=== PATIENT | female | born 1990 | race Caucasian/White ===

== ENCOUNTER 2017-02-04 21:48 | Emergency (ER) | payer OTHER ==
[2016-05-12 07:02] VITALS: BMI 35.7
--- NOTE | 2017-02-04 22:37 | OBHP ---
Datetime: 02/04/2017 22:27 IP Adm Impression: No Active Labor; Intact Membranes IP Chief Complaint Other: P6 complains of LOF , 1 episode yesterday and another episode today. No ut erine contractions, no vaginal bleeding. States good movement. IP Admit Plan: Discharge home Admit Comment, IP Provider: No PPROM. Discharge home. Pelvic Type - PN: Adequate Extremities - PN: Normal Abdomen - PN: Normal Back - PN: Normal Breast - PN: Not Done Lungs - PN: Normal Heart - PN: Normal Thyroid - PN: Not Done Neurologic - PN: Not Done HEENT - PN: Not Done General - PN: Normal IP Fetus A Comments: Bedside sonogram: Vertex, active fetus, Adequate amniotic fluid FHR - Baseline A Provider: 150 Membranes, Provider: Intact Comments, ACOG Physical Exam: SSE: No pooling of fluid on Valsalva. Negative Amniotest. Gestation - Est Wks by US: 25.0 EGA AdmitDate IP: 25.5 IP Chief Complaint: Suspected ruptured membranes NICHD Variability Prov Fetus A: Moderate 6-25bpm FHR Category Provider Fetus A: Category I NICHD Decel Fetus A IP Provider: None Dilatation, Provider: 0 Effacement, Provider: 0 Genitourinary Exam: Normal DTRs - PN: Normal
== END 2017-02-04 22:27 | disposition home or self-care (01) ==
LOC: C.EROB 21:48
DX: O47.02 False labor before 37 completed weeks of gestation, second trimester (principal); Z3A.25 25 weeks gestation of pregnancy

== ENCOUNTER 2017-03-27 02:29 | Emergency (ER) | payer OTHER ==
[2017-03-27 02:55] VITALS: BMI 33.2
[2017-03-27 03:14] LABS: RBC URINE 4 /hpf (0-3); URINE BILIRUBIN NEGATIVE (NEGATIVE); URINE BLOOD NEGATIVE (NEGATIVE); URINE COLOR Yellow (YELLOW); URINE GLUCOSE (UA) NORMAL (Normal); URINE KETONE NEGATIVE (NEGATIVE); URINE PROTEIN NEGATIVE (NEGATIVE); URINE UROBILINOGEN NORMAL mg/dL (0.2-1.0); WBC URINE 3 /hpf (0-5)
[2017-03-27 03:17] LABS: URINE LEUKOCYTE ESTERASE TRACE Leu/uL (Negative)
--- NOTE | 2017-03-27 03:36 | OBHP ---
Datetime: 03/27/2017 03:32 IP Adm Impression: , intrauterine IP Chief Complaint Other: cramping IP Admit Plan: Discharge home Admit Comment, IP Provider: t 3weeks came with c/o bck pain started at 9 pm and increase freque ncy of urinatiom. no pain now, no vb, lf,=fm. obhx 3 x c/s pmh den med pnv all nkda psh c/s soch de ve closed ua 3+le a/p at 3weks uti/r/o pretrm ctxs macrobid po hyration pl given f./u in clinic on Pelvic Type - PN: Adequate Extremities - PN: Normal Abdomen - PN: Normal Back - PN: Normal Breast - PN: Normal Lungs - PN: Normal Heart - PN: Normal Thyroid - PN: Normal Neurologic - PN: Normal HEENT - PN: Normal General - PN: Normal FHR - Baseline A Provider: 130 Contraction Comments Provider: none EGA AdmitDate IP: 33.0 Vital Signs Provider: Reviewed; Within Normal Limits IP Chief Complaint: Uterine contractions NICHD Variability Prov Fetus A: Moderate 6-25bpm NICHD Accel Fetus A IP Provider: [id number] FHR Category Provider Fetus A: Category I Dilatation, Provider: 0 Effacement, Provider: 0 Station, Provider: -3 Genitourinary Exam: Normal DTRs - PN: Normal
--- NOTE | 2017-03-27 03:38 | OBDCSUM ---
Datetime: 02/04/2017 22:27 Discharge Comment, Provider: cayetano gage hyration pl given f./u in clinic on Discharge Diagnosis Prov Other: 33weeks nst uti
== END 2017-03-27 03:38 | disposition home or self-care (01) ==
LOC: C.EROB 02:29
DX: O23.40 Unspecified infection of urinary tract in pregnancy, unspecified trimester (principal); Z3A.33 33 weeks gestation of pregnancy

== ENCOUNTER 2017-05-23 00:06 | Emergency (ER) | payer OTHER ==
[2017-05-23 00:06] VITALS: BMI 33.2
[2017-05-23] MEDS ORDERED: Sodium Chloride 0.9% 1,000 ML IV ONE (00:44)
--- NOTE | 2017-05-23 00:44 | C.PDOC ---
History Of Present Illness 27 year old female who presents to the ER with a complaint of constant bilateral upper quadrant radiating to the epigastric region since this evening. Patient is SP on 05/19 without any complications; she states she has been doing well until now. Patient reports her and delivery was uneventful. Patient reports she has similar episodes of the same pain that is usually associated with eating fatty foods, however, denies eating these foods prior to symptom onset. Denies fever, nausea, or vomiting. Patient has a PSHx of cholecystectomy. B/L UQ AND EPIG PAIN SINCE THIS EVENING. S/P CSECT 05/19 WO COMPLICATION. PS HAS BEEN DOING WELL UNTIL NOW. UNEVENTFUL AND DELIVERY. PAIN SIM TO PRIOR EPISODES USUALLY ASSOC W EATING FATTY FOODS HOWEVER DENIES EATING THESE FOODS PRIOR TO SX ONSET. EPIG RADIATION B/L UQ CONSTANT. NO FEVER, NV. PSH ROBERT, CSECT EXAM MILD DIST NONTOXIC HEENT ANICTERIC ABD +EPIG TEND MOD +LUQ TEND MOD SOFT NO R/G SKIN HEALING CSECT SCAR LOWER ABD; REMAINDER NEG Time Seen by Provider: 05/23/17 00:35 Chief Complaint (Nursing): Abdominal Pain History Per: Patient History/Exam Limitations: no limitations Onset/Duration Of Symptoms: Hrs Current Symptoms Are (Timing): Still Present Location Of Pain/Discomfort: RUQ, Epigastric, LUQ Radiation Of Pain To:: None Quality Of Discomfort: Unable To Describe Associated Symptoms: denies: Fever, Nausea, Vomiting Exacerbating Factors: None Alleviating Factors: None Recent travel outside of the [place]: No Abnormal Vaginal Bleeding: No Past Medical History Reviewed: Historical Data, Nursing Documentation, Vital Signs Vital Signs: Last Vital Signs Temp 98.3 F 05/23/17 02:45 Pulse 54 L 05/23/17 02:45 Resp 16 05/23/17 02:45 BP 150/87 05/23/17 02:45 Pulse Ox 100 05/23/17 03:55 - Medical History PMH: No Chronic Diseases Surgical History: Cholecystectomy, - [facility] Procedures ASPIRAT CURET-POST DELIV (10/01/13) D & C POST DELIVERY (02/18/14) EXTRACTION OF POC, LOW CERVICAL, OPEN APPROACH (08/05/15) Family History: States: Unknown Family Hx - Social History Hx Tobacco Use: No Hx Alcohol Use: Yes Hx Substance Use: No - Immunization History Hx Tetanus Toxoid Vaccination: No Hx Influenza Vaccination: No Hx Pneumococcal Vaccination: No Review Of Systems Except As Marked, All Systems Reviewed And Found Negative. Constitutional: Negative for: Fever Gastrointestinal: Positive for: Abdominal Pain. Negative for: Nausea, Vomiting Physical Exam - Physical Exam Appears: Non-toxic, Other (Mild distress. ) Skin: Warm, Dry, Other (Healing scar to lower abdomen) Head: Atraumatic, Normacephalic Eye(s): bilateral: Normal Inspection, PERRL, EOMI, Other (Anicteric) Ear(s): Bilateral: Normal Oral Mucosa: Moist Neck: Normal, Supple Chest: Symmetrical, No Tenderness Cardiovascular: Rhythm Regular, No Murmur Respiratory: Other (No respiratory distress, Speaking in complete sentences) Gastrointestinal/Abdominal: Soft, Tenderness (Moderate Epigastric. Moderate LUQ. ), No Guarding, No Rebound Neurological/Psych: Oriented x3, Normal Speech, Normal Cognition ED Course And Treatment - Laboratory Results Result Diagrams: 05/23/17 00:51 05/23/17 00:51 O2 Sat by Pulse Oximetry: 100 (Room air) Pulse Ox Interpretation: Normal Progress - Re-Evaluation Re-evaluation Note: 05/23/17 01:50 EXAM UNCH INITIAL. VSS. WILL CT 05/23/17 03:44 D/W DR COTA AWARE OF ER FINDINGS NO POST SURG INVOLVEMENT PENDING FU @ [facility] LATER TODAY. FEELS BETTER - Data Reviewed Data Reviewed: Lab, Diagnostic imaging, Old records - Continuity of Care Discussed pt. case with environmental consultant/specialty: Obstetrics/Gynecology Medical Decision Making Medical Decision Making: Plan: * CT abd/pel * Pepcid * Morphine * Protonix * IV fluids Disposition Counseled Patient/Family Regarding: Studies Performed, Diagnosis, Need For Followup, Rx Given - Disposition Referrals: [facility] [Outside] Disposition: HOME/ ROUTINE Disposition Time: 03:51 Condition: IMPROVED Additional Instructions: RETURN IF WORSENING SYMPTOMS. FOLLOW UP WITH YOUR PMD SCHEDULED. Forms: [facility] (Italian), General Discharge Instructions - Clinical Impression Clinical Impression: Constipation, Hepatitis, Upper abdominal pain - Scribe Statement The provider has reviewed the documentation as recorded by the Scribe Buster Burgess All medical record entries made by the Scribe were at my direction and personally dictated by me. I have reviewed the chart and agree that the record accurately reflects my personal performance of the history, physical exam, medical decision making, and the department course for this patient. I have also personally directed, reviewed, and agree with the discharge instructions and disposition.
[2017-05-23] MEDS ORDERED: Morphine 4 MG/ML VIAL ONE ×3 (00:53→04:10)
[2017-05-23 00:54] LABS: BASO # 0.1 K/uL (0.0-0.2); BASO % 0.7 % (0.0-2.0); EOS # 0.8 K/uL (0.0-0.7); EOS % 5.6 % (0.0-4.0); HEMOGLOBIN 9.4 g/dL (11.0-16.0); LYMPH % 20.7 % (20.0-40.0); MEAN CELL VOLUME 80.9 fL (81.0-99.0); MEAN CORPUSCULAR HEMOGLOBIN 26.9 pg (27.0-31.0); MEAN CORPUSCULAR HGB CONC 33.2 g/dL (33.0-37.0); MEAN PLATELET VOLUME 9.6 fL (7.2-11.7); MONO # 1.3 K/uL (0.0-0.8); MONO % 8.8 % (0.0-10.0); NEUT # 9.2 K/uL (1.8-7.0); NEUT % 64.2 % (50.0-75.0); NRBC % 0.2 % (0.0-2.0); RBC 3.49 Mil/uL (3.80-5.20); RED CELL DISTRIBUTION WIDTH 15.6 % (11.5-14.5); WHITE BLOOD COUNT 14.4 K/uL (4.8-10.8)
[2017-05-23 01:02] LABS: ALBUMIN 2.9 g/dL (3.5-5.0)
[2017-05-23 01:05] LABS: ALB/GLOB RATIO 0.9 (1.0-2.1); AST/SGOT 93 U/L (14-36); BILIRUBIN,DIRECT 0.8 mg/dL (0.0-0.4); GFR AFRICAN-AMERICAN > 60; GFR NON-AFRICAN AMERICAN > 60
[2017-05-23 01:06] LABS: ALT/SGPT 73 U/L (9-52); BLOOD UREA NITROGEN 18 mg/dL (7-17); LIPASE 68 U/L (23-300)
[2017-05-23 01:58] LABS: SQUAMOUS EPITHIAL 1 /hpf (0-5); URINE BILIRUBIN NEGATIVE (NEGATIVE); URINE BLOOD 2+ (NEGATIVE); URINE CLARITY Clear (Clear); URINE COLOR Yellow (YELLOW); URINE GLUCOSE (UA) NORMAL (Normal); URINE LEUKOCYTE ESTERASE NEG Leu/uL (Negative); URINE NITRATE NEGATIVE (NEGATIVE); URINE PROTEIN NEGATIVE (NEGATIVE); URINE UROBILINOGEN NORMAL mg/dL (0.2-1.0)
[2017-05-23] MEDS ORDERED: Iohexol 350mg/ml 100 ML ONE (02:25)
[2017-05-23] MEDS ORDERED: Oxycodone/Acetaminophen 5/325 mg Tab PO STA (03:55)
[2017-05-23 04:12] VITALS: RESP 18
[2017-05-23 04:40] VITALS: BP 153/94; PULSE 52; TEMP 98.3; O2SAT 95
--- NOTE | 2017-05-23 08:37 | CT ---
PROCEDURE: CT Abdomen and Pelvis with contrast HISTORY: RUQ PAIN, ABN LFT S/P CSECT COMPARISON: 05/12/2016. TECHNIQUE: CT scan of the abdomen and pelvis was performed after intravenous administration of contrast. Oral contrast was not administered. Coronal and sagittal reformatted images were obtained. Contrast dose: 100 mL Omnipaque 350 Radiation dose: Total exam DLP = 980.72 mGy-cm. This CT exam was performed using one or more of the following dose reduction techniques: Automated exposure control, adjustment of the mA and/or kV according to patient size, and/or use of iterative reconstruction technique. FINDINGS: LOWER THORAX: There is a moderate right and small left pleural effusion with compressive atelectasis in the lungs. LIVER: There is moderate hepatomegaly and diffuse low-attenuation in the liver. There is mild forefoot early edema. GALLBLADDER AND BILE DUCTS: The gallbladder is surgically absent. There is mild intrahepatic biliary ductal dilatation and mild dilatation of the common bile duct in keeping with post cholecystectomy status. PANCREAS: The pancreas is normal in size and there is homogeneous enhancement without focal mass or ductal dilatation. SPLEEN: There is mild splenomegaly. No focal lesion. ADRENALS: Both adrenal glands are normal in size without discrete nodule. KIDNEYS AND URETERS: Both kidneys are normal in size and there is homogeneous enhancement without hydronephrosis or focal mass. VASCULATURE: No aortic aneurysm. BOWEL: The small bowel loops are normal in caliber. There is moderate amount of stool scattered throughout the colon. APPENDIX: Normal appendix. PERITONEUM: There is a small amount of perihepatic fluid and free fluid in the pelvis. . No free air. LYMPH NODES: No enlarged lymph nodes. BLADDER: Partially decompressed. The small focus of air within the urinary bladder is likely related to recent catheterization. REPRODUCTIVE: The uterus is enlarged in keeping with status. BONES: No acute fracture. OTHER FINDINGS: There is diffuse anasarca. IMPRESSION: 1. Moderate right and small left pleural effusions, small amount of free fluid in the perihepatic space and pelvis. 2. Mild periportal edema, nonspecific. 3. Constipation. A preliminary report was provided by [employer].
== END 2017-05-23 04:45 | disposition home or self-care (01) ==
LOC: C.ER 00:06
DX: K59.00 Constipation, unspecified (principal); K75.9 Inflammatory liver disease, unspecified; R10.9 Unspecified abdominal pain
CPT/HCPCS: 74177; 80048; 80076; 81001; 83690; 85025; 96374; 96375; 96376; 99285; C9113; J2270; J7040; Q9967

== ENCOUNTER 2017-10-07 20:45 | Emergency (ER) | payer OTHER ==
[2017-10-07 20:45] VITALS: BMI 33.2
[2017-10-07 20:58] VITALS: BP 111/70; PULSE 88; RESP 20; TEMP 98.9; O2SAT 98
[2017-10-07 21:30] LABS: RBC URINE 2 /hpf (0-3); URINE BACTERIA RARE (<OCC); URINE BILIRUBIN NEGATIVE (NEGATIVE); URINE BLOOD 2+ (NEGATIVE); URINE COLOR Yellow (YELLOW); URINE GLUCOSE (UA) NORMAL (Normal); URINE KETONE NEGATIVE (NEGATIVE); URINE LEUKOCYTE ESTERASE 1+ Leu/uL (Negative); URINE PROTEIN NEGATIVE (NEGATIVE); URINE UROBILINOGEN NORMAL mg/dL (0.2-1.0); WBC URINE 28 /hpf (0-5)
--- NOTE | 2017-10-07 21:30 | C.PDOC ---
History Of Present Illness Drake Eastman is a 27 y/o female who presents to the ER complaining of abdominal pain, back pain, and dysuria, ongoing for 2 months. She describes having diffuse back pain as well as pain radiating from the left flank into the left abdomen. Denies fever, nausea, vomiting, and diarrhea. Pt reports taking Tylenol today at 2PM with no improvement. Was seen here on 05/23/[address] showing moderate right and small left pleural effusions, with small amount of free fluid in the perihepatic space/pelvis, as well as constipation and mild periportal edema. Pt also seen in [facility] ER on 07/31/[address] with no acute findings. Of note, patient gave 4 months ago via with no complications. She denies vaginal bleeding or discharge and states she is having normal menstruation. Time Seen by Provider: 10/07/17 20:56 Chief Complaint (Nursing): Female Genitourinary History Per: Patient History/Exam Limitations: no limitations Onset/Duration Of Symptoms: Days (x 2 months) Current Symptoms Are (Timing): Still Present Past Medical History Reviewed: Historical Data, Nursing Documentation, Vital Signs Vital Signs: Last Vital Signs Temp 98.9 F 10/07/17 20:53 Pulse 88 10/07/17 20:53 Resp 20 10/07/17 20:53 BP 111/70 10/07/17 20:53 Pulse Ox 98 10/07/17 21:40 - Medical History PMH: Gall Bladder Disease Surgical History: Cholecystectomy (2010), - [facility] Procedures ASPIRAT CURET-POST DELIV (10/01/13) D & C POST DELIVERY (02/18/14) EXTRACTION OF POC, LOW CERVICAL, OPEN APPROACH (08/05/15) Family History: States: Unknown Family Hx - Social History Hx Tobacco Use: No Hx Alcohol Use: Yes Hx Substance Use: No - Immunization History Hx Tetanus Toxoid Vaccination: No Hx Influenza Vaccination: No Hx Pneumococcal Vaccination: No Review Of Systems Constitutional: Negative for: Fever Gastrointestinal: Positive for: Abdominal Pain. Negative for: Nausea, Vomiting , Diarrhea Genitourinary: Positive for: Dysuria. Negative for: Vaginal Discharge, Vaginal Bleeding Musculoskeletal: Positive for: Back Pain Physical Exam - Physical Exam Appears: Non-toxic, No Acute Distress Skin: Normal Color, Warm, Dry Head: Atraumatic, Normacephalic Eye(s): bilateral: Normal Inspection, PERRL, EOMI Oral Mucosa: Moist Neck: Normal ROM, Supple Chest: Symmetrical, No Tenderness Cardiovascular: Rhythm Regular, No Murmur Respiratory: Normal Breath Sounds, No Rales, No Rhonchi, No Stridor Gastrointestinal/Abdominal: Normal Exam, Soft, Tenderness (mild left flank tenderness), No Distention Back: CVA Tenderness (Left), No Vertebral Tenderness, Paraspinal Tenderness ( bilateral lumbar area) Extremity: Normal ROM, No Pedal Edema, No Deformity Neurological/Psych: Oriented x3, Normal Speech, Normal Motor, Normal Sensation ED Course And Treatment - Laboratory Results Result Diagrams: 10/07/17 22:05 10/07/17 22:05 Urine POC: Negative O2 Sat by Pulse Oximetry: 98 (RA) Pulse Ox Interpretation: Normal Medical Decision Making Medical Decision Making: Initial Plan: POC urine Urinalysis Urine culture 1030 pm pt with dysuria and back pain x 2 months with left flank pain x few days ; pt also reports infrequent bowel movement, no fever or chills, no n/v/d. pt with +1le, 28 wbc, in urine, will treat for uti; pt to be given colace as well to help with regularity. pt has wbc of 14.9 with no left shift; advise pt to f/ u with hem onc and pmd. 1045 pm pt sts pain decreased, will d/c home shortly Disposition Counseled Patient/Family Regarding: Diagnosis, Need For Followup, Rx Given - Disposition Referrals: [facility] [Outside] [facility] [Outside] Alis Henderson MD [Staff Provider] - Disposition: HOME/ ROUTINE Disposition Time: 22:49 Condition: STABLE Additional Instructions: Please follow up with medical clinic and also with the drive in waiter/waitress. Your white blood cells are elevated and should have a further outpatient evaluation. mani antibiotics as prescribed. Tylenol or Motrin for pain. Drink increased fluids. Increase fiber in diet- recommend more fruits and vegetables. Use Colace as prescrbied. Prescriptions: Ciprofloxacin [Cipro] 500 mg PO BID #14 tab Docusate Sodium [Colace] 100 mg PO BID #60 capsule Forms: [facility] (Latvian), General Discharge Instructions - Clinical Impression Clinical Impression: UTI (urinary tract infection), Back pain - PA / VICE PRESIDENT OF H[employer]OURCES / Resident Statement MD/DO has reviewed & agrees with the documentation as recorded. - Scribe Statement The provider has reviewed the documentation as recorded by the Scribe (Airam Miller) All medical record entries made by the Scribe were at my direction and personally dictated by me. I have reviewed the chart and agree that the record accurately reflects my personal performance of the history, physical exam, medical decision making, and the department course for this patient. I have also personally directed, reviewed, and agree with the discharge instructions and disposition.
[2017-10-07 22:09] LABS: BASO # 0.1 K/uL (0.0-0.2); BASO % 0.9 % (0.0-2.0); EOS # 0.3 K/uL (0.0-0.7); EOS % 2.3 % (0.0-4.0); HEMATOCRIT 36.8 % (34.0-47.0); LYMPH # 5.4 K/uL (1.0-4.3); LYMPH % 36.1 % (20.0-40.0); MEAN CELL VOLUME 80.2 fL (81.0-99.0); MEAN CORPUSCULAR HEMOGLOBIN 27.7 pg (27.0-31.0); MEAN CORPUSCULAR HGB CONC 34.5 g/dL (33.0-37.0); MEAN PLATELET VOLUME 10.3 fL (7.2-11.7); MONO % 6.8 % (0.0-10.0); WHITE BLOOD COUNT 14.9 K/uL (4.8-10.8)
[2017-10-07 22:23] LABS: ALB/GLOB RATIO 1.1 (1.0-2.1); ALKALINE PHOSPHATASE 86 U/L (38-126); ALT/SGPT 48 U/L (9-52); AST/SGOT 20 U/L (14-36); BILIRUBIN,TOTAL 0.5 mg/dL (0.2-1.3); BLOOD UREA NITROGEN 11 mg/dL (7-17); CALCIUM 8.3 mg/dl (8.6-10.4); CARBON DIOXIDE 29 mmol/L (22-30); CHLORIDE 105 mmol/L (98-107); GFR AFRICAN-AMERICAN > 60; GLUCOSE,RANDOM 82 mg/dL (65-105); POTASSIUM 3.6 mmol/L (3.6-5.2); SODIUM 139 mmol/L (132-148)
== END 2017-10-07 23:13 | disposition home or self-care (01) ==
LOC: C.ER 20:45
DX: N39.0 Urinary tract infection, site not specified (principal); M54.9 Dorsalgia, unspecified
CPT/HCPCS: 80053; 81001; 85025; 87086; 96374; 99283; J1885

== ENCOUNTER 2017-10-24 12:25 | Emergency (ER) | payer OTHER ==
[2017-10-24 12:25] VITALS: BMI 33.2
[2017-10-24] MEDS ORDERED: Belladonna-Phenobarbital PO STA (13:28)
[2017-10-24] MEDS ORDERED: Sodium Chloride 0.9% 1,000 ML IV ONE ×2 (13:28→15:45)
[2017-10-24] MEDS ORDERED: Belladonna-Phenobarbital ONE (13:44)
[2017-10-24 13:47] LABS: BASO % 0.2 % (0.0-2.0); EOS # 0.1 K/uL (0.0-0.7); EOS % 0.3 % (0.0-4.0); HEMOGLOBIN 14.6 g/dL (11.0-16.0); LYMPH # 0.6 K/uL (1.0-4.3); LYMPH % 3.5 % (20.0-40.0); MEAN CELL VOLUME 81.2 fL (81.0-99.0); MEAN CORPUSCULAR HEMOGLOBIN 27.8 pg (27.0-31.0); MEAN CORPUSCULAR HGB CONC 34.2 g/dL (33.0-37.0); MEAN PLATELET VOLUME 10.4 fL (7.2-11.7); MONO # 0.6 K/uL (0.0-0.8); MONO % 3.8 % (0.0-10.0); NEUT # 14.7 K/uL (1.8-7.0); NEUT % 92.2 % (50.0-75.0); PLATELET COUNT 203 K/uL (130-400); RBC 5.26 Mil/uL (3.80-5.20); RED CELL DISTRIBUTION WIDTH 15.2 % (11.5-14.5); WHITE BLOOD COUNT 15.9 K/uL (4.8-10.8)
[2017-10-24 14:24] LABS: ALB/GLOB RATIO 1.2 (1.0-2.1); ALBUMIN 4.4 g/dL (3.5-5.0); ALT/SGPT 34 U/L (9-52); AST/SGOT 32 U/L (14-36); BLOOD UREA NITROGEN 14 mg/dL (7-17); CALCIUM 8.5 mg/dl (8.6-10.4); GFR AFRICAN-AMERICAN > 60; GFR NON-AFRICAN AMERICAN > 60; LIPASE 65 U/L (23-300)
[2017-10-24 14:39] LABS: ANISOCYTOSIS SLIGHT; LYMPHOCYTE 3 % (20-40); MONOCYTE 5 % (0-10); NEUTROPHIL 92 % (50-75); PLATELET ESTIMATE NORMAL (NORMAL); TOTAL CELLS COUNTED 100
[2017-10-24 15:44] LABS: HCG,QUALITATIVE URINE NEGATIVE (NEGATIVE); SQUAMOUS EPITHIAL 8 /hpf (0-5); URINE BILIRUBIN NEGATIVE (NEGATIVE); URINE BLOOD 3+ (NEGATIVE); URINE CLARITY Hazy (Clear); URINE COLOR Red (YELLOW); URINE GLUCOSE (UA) NORMAL (Normal); URINE LEUKOCYTE ESTERASE NEG Leu/uL (Negative); URINE NITRATE NEGATIVE (NEGATIVE); URINE PROTEIN 2+ mg/dL (NEGATIVE); URINE UROBILINOGEN NORMAL mg/dL (0.2-1.0)
[2017-10-24] MEDS ORDERED: Sodium Chloride 0.9% 1,000 ML ONE (16:14)
[2017-10-24] MEDS ORDERED: Alum-Mag Hydrox-Simethicone Susp (30 mL) PO STA (16:49)
[2017-10-24 17:03] VITALS: TEMP 98.4
[2017-10-24] MEDS ORDERED: Alum-Mag Hydrox-Simethicone Susp (30 mL) ONE (17:08)
[2017-10-24] MEDS ORDERED: Iodixanol 320 mg/ml 150 ml Bottle IV ONE (18:09)
--- NOTE | 2017-10-24 18:52 | CT ---
PROCEDURE: CT Abdomen and Pelvis with contrast HISTORY: Acute abdominal pain, vomiting and diarrhea. By history, negative test (concurrent with this examination). COMPARISON: 05/23/2017. TECHNIQUE: Contrast dose: 100 cc Visipaque 320 Radiation dose: Total exam DLP = 520.23 mGy-cm. This CT exam was performed using one or more of the following dose reduction techniques: Automated exposure control, adjustment of the mA and/or kV according to patient size, and/or use of iterative reconstruction technique. FINDINGS: LOWER THORAX: Unremarkable. LIVER: Steatosis hepatomegaly, hepatic steatosis GALLBLADDER AND BILE DUCTS: Status post cholecystectomy. No abnormality is seen in the gallbladder fossa. PANCREAS: Unremarkable. No gross lesion or ductal dilatation. SPLEEN: Stable splenomegaly, mild ADRENALS: Unremarkable. No mass. KIDNEYS AND URETERS: Unremarkable. No hydronephrosis. No solid mass. VASCULATURE: Unremarkable. No aortic aneurysm. BOWEL: Unremarkable. No obstruction. No gross mural thickening. APPENDIX: Normal appendix. PERITONEUM: Unremarkable. No free fluid. No free air. LYMPH NODES: Unremarkable. No enlarged lymph nodes. BLADDER: Unremarkable. REPRODUCTIVE: Unremarkable. BONES: No acute fracture. OTHER FINDINGS: None. IMPRESSION: No acute findings related to/accounting for the clinical presentation. No significant interval change compared to the prior examination(s). Additional benign and/or incidental findings described above.
--- NOTE | 2017-10-24 18:58 | C.PDOC ---
Time Seen by Provider: 10/24/17 13:20 Chief Complaint (Nursing): Abdominal Pain History Per: Patient Onset/Duration Of Symptoms: Days (1) Current Symptoms Are (Timing): Still Present Severity: Moderate Location Of Pain/Discomfort: LUQ Quality Of Discomfort: Unable To Describe, "Pain" Associated Symptoms: Nausea, Vomiting, Diarrhea Exacerbating Factors: Food Alleviating Factors: None Last Bowel Movement: Today Recent travel outside of the [place]: No Additional History Per: Prior Records Last Menstral Period: Now Past Medical History Reviewed: Historical Data, Nursing Documentation, Vital Signs Vital Signs: Last Vital Signs Temp 98.4 F 10/24/17 16:15 Pulse 87 10/24/17 16:15 Resp 16 10/24/17 16:15 BP 107/68 10/24/17 16:15 Pulse Ox 99 10/24/17 16:15 - Medical History PMH: No Chronic Diseases Surgical History: Cholecystectomy (2010), - [facility] Procedures ASPIRAT CURET-POST DELIV (10/01/13) D & C POST DELIVERY (02/18/14) EXTRACTION OF POC, LOW CERVICAL, OPEN APPROACH (08/05/15) Family History: States: Unknown Family Hx - Social History Hx Tobacco Use: No Hx Alcohol Use: Yes Hx Substance Use: No - Immunization History Hx Tetanus Toxoid Vaccination: No Hx Influenza Vaccination: No Hx Pneumococcal Vaccination: No Review Of Systems Except As Marked, All Systems Reviewed And Found Negative. Constitutional: Negative for: Weakness Cardiovascular: Negative for: Chest Pain Respiratory: Negative for: Shortness of Breath, Hemoptysis Gastrointestinal: Positive for: Nausea, Vomiting, Abdominal Pain, Diarrhea Genitourinary: Negative for: Dysuria Musculoskeletal: Negative for: Neck Pain Skin: Negative for: Rash Neurological: Negative for: Weakness, Numbness, Seizures Physical Exam - Physical Exam Appears: Non-toxic, Other (Uncomfortable) Skin: Normal Color, Warm, Dry, No Rash Head: Atraumatic, Normacephalic Eye(s): bilateral: Normal Inspection, PERRL, EOMI Neck: Normal ROM, Supple Cardiovascular: Rhythm Regular Respiratory: Normal Breath Sounds, No Accessory Muscle Use Gastrointestinal/Abdominal: Soft, Tenderness (left sided, epigastric) Extremity: Normal ROM Neurological/Psych: Oriented x3, Normal Motor, Normal Sensation ED Course And Treatment - Laboratory Results Result Diagrams: 10/24/17 13:39 10/24/17 13:39 Lab Interpretation: Abnormal Interpretation Of Abnormal: Leukocytosis Urine POC: Negative O2 Sat by Pulse Oximetry: 99 Pulse Ox Interpretation: Normal - CT Scan/US CT abd/pelv Other Rad Studies (CT/US): Read By Radiologist, Radiology Report Reviewed CT/US Interpretation: IMPRESSION: No acute findings related to/accounting for the clinical presentation. No significant interval change compared to the prior examination(s). Additional benign and/or incidental findings described above. Progress - Interventions Interventions:: Observation, Intravenous fluid - Medications Administered Intravenous: Antiemetic, H-2 ashlee, NSAID - Data Reviewed Data Reviewed: Lab, Diagnostic imaging, Old records - Patient Status Patient status: Mostly improved - Continuity of Care Discussed patient case with:: Patient, ED Nurse - Patient Plan Patient Plan: Discharge, F/U with PCP Disposition Counseled Patient/Family Regarding: Studies Performed, Diagnosis, Need For Followup, Rx Given - Disposition Disposition: HOME/ ROUTINE Disposition Time: 18:59 Condition: IMPROVED Additional Instructions: Drink plenty of fluids. Follow up with your doctor. Return to the ER if you develop fever, not tolerating fluids, worsening of symptoms or if you have any other concerns. Prescriptions: Bismuth Subsalicylate [Pepto Bismol] 2 tab PO Q1 PRN #16 ctb PRN Reason: Diarrhea Dicyclomine [Bentyl] 20 mg PO QID PRN #20 tab PRN Reason: Irritable Bowel Symptoms Famotidine [Pepcid] 20 mg PO BID #30 tab Instructions: Gastroenteritis (ED) - Clinical Impression Clinical Impression: Abdominal pain, Nausea vomiting and diarrhea
[2017-10-24 19:22] VITALS: BP 110/72; PULSE 84; RESP 18; O2SAT 100
== END 2017-10-24 19:22 | disposition home or self-care (01) ==
LOC: C.ER 12:25
DX: R10.12 Left upper quadrant pain (principal); R11.2 Nausea with vomiting, unspecified; R19.7 Diarrhea, unspecified
CPT/HCPCS: 74177; 80053; 81001; 83690; 84703; 85025; 87804; 96361; 96374; 96375; 99285; J1885; J2405; J7040; Q9967

== ENCOUNTER 2017-10-26 01:02 | Emergency (ER) | payer OTHER ==
[2017-10-26 01:02] VITALS: BMI 33.2
[2017-10-26 01:29] VITALS: TEMP 97.6
[2017-10-26] MEDS ORDERED: Midazolam 2 MG/2 ML VIAL IM STA ×2 (02:05→02:35)
[2017-10-26] MEDS ORDERED: DiphenhydrAMINE 50 mg/ml Inj IM STA (02:06)
[2017-10-26] MEDS ORDERED: DiphenhydrAMINE 50 mg/ml Inj ONE (02:21)
[2017-10-26] MEDS ORDERED: Midazolam 2 MG/2 ML VIAL ONE ×2 (02:22→02:42)
--- NOTE | 2017-10-26 03:51 | C.PDOC ---
History Of Present Illness 27 year old female is brought to the ED via EMS and [place] [employer] after her 7 year old called 911 stating the patient was intoxicated. Upon arrival patient is acting erratic with slurred speech and aggressive towards the staff. Time Seen by Provider: 10/26/17 01:19 Chief Complaint (Nursing): Substance Abuse History Per: Patient, EMS History/Exam Limitations: intoxication Onset/Duration Of Symptoms: Hrs Current Symptoms Are (Timing): Still Present Suicide/Self Injury Attempted (Context): None Modifying Factor(s): Alcohol Associated Symptoms: denies: Depression, Suicidal Thoughts, Suicidal Plan Recent travel outside of the [place]: No Additional History Per: Patient, EMS Past Medical History Reviewed: Historical Data, Nursing Documentation, Vital Signs Vital Signs: Last Vital Signs Temp 97.6 F 10/26/17 05:53 Pulse 78 10/26/17 05:53 Resp 16 10/26/17 05:53 BP 106/55 L 10/26/17 05:53 Pulse Ox 98 10/26/17 05:53 - Medical History PMH: Gall Bladder Disease Surgical History: Cholecystectomy (2010), - [facility] Procedures ASPIRAT CURET-POST DELIV (10/01/13) D & C POST DELIVERY (02/18/14) EXTRACTION OF POC, LOW CERVICAL, OPEN APPROACH (08/05/15) Family History: States: Unknown Family Hx - Social History Hx Tobacco Use: No Hx Alcohol Use: Yes Hx Substance Use: No - Immunization History Hx Tetanus Toxoid Vaccination: No Hx Influenza Vaccination: No Hx Pneumococcal Vaccination: No Review Of Systems Review Of Systems: ROS cannot be obtained secondary to pt's inabilty to answer questions. Physical Exam - Physical Exam Appears: Non-toxic, Combative, Other (Intoxicated) Skin: Normal Color, Warm, Dry Head: Atraumatic, Normacephalic Nose: No Discharge, No Epistaxis Oral Mucosa: Moist Neck: Normal ROM, Supple Chest: Symmetrical Cardiovascular: Rhythm Regular, No Murmur Respiratory: Normal Breath Sounds, No Rales, No Rhonchi, No Wheezing Gastrointestinal/Abdominal: Soft, No Tenderness, No Guarding, No Rebound Extremity: Normal ROM, No Pedal Edema, No Calf Tenderness, No Deformity, No Swelling Neurological/Psych: No Normal Speech (slurred speech due to intoxication) ED Course And Treatment - Laboratory Results Result Diagrams: 10/26/17 05:09 10/26/17 05:09 O2 Sat by Pulse Oximetry: 98 (On RA) Pulse Ox Interpretation: Normal Medical Decision Making Medical Decision Making: Plan: * Labs * Patient was sedated due to her being aggressive towards the staff * Benadryl 50 IM * Haldol 5 mg IM * Versed 5 mg IM * UA pt with a etoh level 227. pt is on a continous antitank assault gunner. Pending sobriety Disposition - Disposition Disposition Time: 07:04 Condition: FAIR Forms: [employer] [facility] (Tajik) - Clinical Impression Clinical Impression: Intoxication - Scribe Statement The provider has reviewed the documentation as recorded by the Scribe Owen Stephenson All medical record entries made by the Scribe were at my direction and personally dictated by me. I have reviewed the chart and agree that the record accurately reflects my personal performance of the history, physical exam, medical decision making, and the department course for this patient. I have also personally directed, reviewed, and agree with the discharge instructions and disposition.
[2017-10-26 05:20] LABS: BASO % 0.3 % (0.0-2.0); EOS # 0.1 K/uL (0.0-0.7); EOS % 1.2 % (0.0-4.0); HEMOGLOBIN 12.5 g/dL (11.0-16.0); LYMPH # 3.5 K/uL (1.0-4.3); MEAN CELL VOLUME 81.7 fL (81.0-99.0); MEAN CORPUSCULAR HEMOGLOBIN 27.2 pg (27.0-31.0); MEAN CORPUSCULAR HGB CONC 33.3 g/dL (33.0-37.0); MEAN PLATELET VOLUME 9.9 fL (7.2-11.7); MONO # 0.9 K/uL (0.0-0.8); MONO % 9.5 % (0.0-10.0); NEUT # 4.6 K/uL (1.8-7.0); NRBC % 0.1 % (0.0-2.0); RBC 4.59 Mil/uL (3.80-5.20); RED CELL DISTRIBUTION WIDTH 14.4 % (11.5-14.5); WHITE BLOOD COUNT 9.1 K/uL (4.8-10.8)
[2017-10-26 05:31] LABS: ALB/GLOB RATIO 1.3 (1.0-2.1); ALBUMIN 3.8 g/dL (3.5-5.0); ALT/SGPT 33 U/L (9-52); AST/SGOT 24 U/L (14-36); BLOOD UREA NITROGEN 4 mg/dL (7-17); CALCIUM 7.4 mg/dl (8.6-10.4); GFR AFRICAN-AMERICAN > 60; GFR NON-AFRICAN AMERICAN > 60
[2017-10-26 06:01] LABS: BARBITURATES, UR NEGATIVE (NEGATIVE); OPIATES, UR NEGATIVE (NEGATIVE); PHENCYCLIDINE, UR NEGATIVE (NEGATIVE)
[2017-10-26 06:11] LABS: BENZODIAZEPINES, UR POSITIVE (NEGATIVE)
[2017-10-26 07:56] VITALS: RESP 20; O2SAT 99
[2017-10-26 08:32] VITALS: BP 99/62; PULSE 92
== END 2017-10-26 08:40 | disposition home or self-care (01) ==
LOC: C.ER 01:02
DX: F10.129 Alcohol abuse with intoxication, unspecified (principal); Y90.7 Blood alcohol level of 200-239 mg/100 ml
CPT/HCPCS: 80053; 80320; 80324; 80345; 80346; 80349; 80353; 80358; 80361; 83992; 84703; 85025; 96372; 99285; J1200; J1630; J2250

== ENCOUNTER 2019-03-08 11:57 | Emergency (ER) | payer SELFPAY ==
[2019-03-08 11:57] VITALS: BMI 32.4
[2019-03-08 12:11] VITALS: BP 149/94; PULSE 102; RESP 18; TEMP 98.4; O2SAT 100
--- NOTE | 2019-03-08 12:28 | C.PDOC ---
History Of Present Illness 29 year old female presents to ED stating that shes been smoking crack and cocaine for the past 2 weeks and is looking for detox. Patient denies SI/HI or alcohol use. No signs of withdrawal. Patient has no medical complaints at this time. Time Seen by Provider: 03/08/19 12:24 Chief Complaint (Nursing): Substance Abuse History Per: Patient History/Exam Limitations: no limitations Onset/Duration Of Symptoms: Days Current Symptoms Are (Timing): Still Present Past Medical History Reviewed: Historical Data, Nursing Documentation, Vital Signs Vital Signs: Last Vital Signs Temp 98.4 F 03/08/19 12:08 Pulse 102 H 03/08/19 12:08 Resp 18 03/08/19 12:08 BP 149/94 H 03/08/19 12:08 Pulse Ox 100 03/08/19 12:08 Primary Care Provider: FAMILY PROVIDER,NO - Medical History PMH: Gall Bladder Disease Denies: Sickle Cell Disease Surgical History: Cholecystectomy (2010), - [facility] Procedures ASPIRAT CURET-POST DELIV (10/01/13) D & C POST DELIVERY (02/18/14) EXTRACTION OF POC, LOW CERVICAL, OPEN APPROACH (08/05/15) Family History: States: No Known Family Hx - Social History Hx Tobacco Use: No Hx Alcohol Use: Yes Hx Substance Use: No - Immunization History Hx Tetanus Toxoid Vaccination: No Hx Influenza Vaccination: No Hx Pneumococcal Vaccination: No Review Of Systems Constitutional: Negative for: Fever, Chills Gastrointestinal: Negative for: Vomiting Psych: Positive for: Other (cocaine and crack use). Negative for: Suicidal ideation (or homicidal ideation), Withdrawal Physical Exam - Physical Exam Appears: Non-toxic, No Acute Distress, Other (Comfortable) Skin: Warm Head: Normacephalic Eye(s): bilateral: Normal Inspection Oral Mucosa: Moist Cardiovascular: Rhythm Regular Respiratory: Normal Breath Sounds Gastrointestinal/Abdominal: Soft Extremity: Bilateral: Atraumatic Neurological/Psych: Oriented x3, Normal Speech ED Course And Treatment O2 Sat by Pulse Oximetry: 100 (RA) Pulse Ox Interpretation: Normal Medical Decision Making Medical Decision Making: Spoke with addiction social worker, states no detox available for this substance and no female beds available. Patient will be discharged home. Provide the patient with list of other local detox centers Disposition Counseled Patient/Family Regarding: Diagnosis, Need For Followup - Disposition Disposition: HOME/ ROUTINE Disposition Time: 12:28 Condition: STABLE Instructions: Drug Abuse and Drug Addiction (DC) Forms: [employer] [facility] (Thai) - POA Present On Arrival: None - Clinical Impression Clinical Impression: Drug abuse - PA / [employer] / Resident Statement MD/DO has reviewed & agrees with the documentation as recorded. - Scribe Statement The provider has reviewed the documentation as recorded by the Scribe Madison Horan All medical record entries made by the Scribe were at my direction and personally dictated by me. I have reviewed the chart and agree that the record accurately reflects my personal performance of the history, physical exam, medical decision making, and the department course for this patient. I have also personally directed, reviewed, and agree with the discharge instructions and disposition.
== END 2019-03-08 12:35 | disposition home or self-care (01) ==
LOC: C.ER 11:57
DX: F19.10 Other psychoactive substance abuse, uncomplicated (principal)